=== PATIENT | male | born 1965 | race Caucasian/White ===

== ENCOUNTER 2024-02-10 22:12 | Emergency (ER) | payer OTHER, BC ==
[2024-02-11] MEDS: Acetaminophen/HYDROcodone 325-5 MG Tab PO ONE
[2024-02-11 01:39] VITALS: BP 116/85; PULSE 85
== END 2024-02-11 01:39 | disposition home or self-care (01) ==
LOC: JD.ED 22:12
DX: S62.114A Nondisplaced fracture of triquetrum [cuneiform] bone, right wrist, initial encounter for closed fracture (principal); R91.1 Solitary pulmonary nodule; W19.XXXA Unspecified fall, initial encounter
CPT/HCPCS: 71101; 71250; 73110; 73130; 99284; A9270; 99283